=== PATIENT | male | born 1990 | race Caucasian/White ===

== ENCOUNTER 2020-03-19 10:21 | Outpatient (REF) | payer MEDICAID, SELFPAY | END 2020-03-19 10:22 | disposition home or self-care (01) | LOC: HO.LAB 10:21 | PROVIDERS: Visit Provider Internal Medicine | DX: Z20.822 Contact with and (suspected) exposure to COVID-19 (principal) | CPT/HCPCS: 36415; C9803; U0003 ==

== ENCOUNTER → 2022-02-10 08:33 | Outpatient (BNVA) | payer OTHER, SELFPAY | PROVIDERS: Visit Provider Internal Medicine | DX: R05.8 Other specified cough (principal); R53.83 Other fatigue; R42 Dizziness and giddiness | CPT/HCPCS: 71046; 99203 ==

== ENCOUNTER 2024-12-17 08:55 | Emergency (ER) | payer MEDICAID, SELFPAY ==
--- NOTE | ~2024-12-17 | XR_ITS ---
CLINICAL HISTORY: numbness down LUE 3 view left shoulder Comparison: None provided Findings: Bones intact. No dislocations. No significant loss of joint space or osteophytes. No erosions. No radiopaque foreign body. IMPRESSION: 1. No acute findings This document has been electronically signed by: Adia Bernal MD on 12/17/2024 13:51:54
--- NOTE | ~2024-12-17 | XR_ITS ---
CLINICAL HISTORY: chest pressure 2 view chest x-ray Comparison: CR/SR - XR CHEST 2 VIEWS - 02/10/22 09:59 EST Findings: The lungs are clear. Normal size heart. No acute fracture. IMPRESSION: 1. No acute findings. This document has been electronically signed by: Adia Bernal MD on 12/17/2024 13:57:52
[2024-12-17 08:57] VITALS: BP 122/71; PULSE 75; RESP 18; TEMP 36.4; O2SAT 97; BMI 30.8
--- NOTE | 2024-12-17 09:01 | ECG_ITS ---
Test Reason : CP Blood Pressure : */* mmHG Vent. Rate : 70 BPM Atrial Rate : 70 BPM P-R Int : 154 ms QRS Dur : 90 ms QT Int : 376 ms P-R-T Axes : 40 48 27 degrees QTcB Int : 406 ms Normal sinus rhythm Normal ECG When compared with ECG of 29-Jul-2009 15:28, No significant change was found Referred By: Generic ED Physician Electronically Signed By: Carlos Awan
[2024-12-17 09:18] LABS: MANUAL DIFF FLAG NO
[2024-12-17 09:29] LABS: Hematocrit 45.5 % (42.0-52.0); Hemoglobin 15.9 g/dl (14.0-18.0); Imm Gran Abs Auto 0.02 X10*3/uL (0.00-0.03); Imm Gran Pct Auto 0.3 % (0.0-0.4); Lymphocytes Absolute Auto 1.4 X10*3/uL (1.2-4.9); Mean Corpuscular HGB Conc 34.9 g/dl (31.0-36.0); Mean Corpuscular Hemoglobin 30.8 pg (27.0-33.0); Mean Corpuscular Volume 88.0 fL (80.0-98.0); NRBC Abs Auto 0.000 X10*3/uL (0.0-0.012); NRBC Pct Auto 0.0 /100WBC (0.0-0.2); Platelet Count 212 X10*3/uL (160-400); Red Blood Count 5.17 X10*6/uL (4.60-5.80); White Blood Count 6.4 X10*3/uL (4.8-10.8)
[2024-12-17 09:39] LABS: Anion Gap 11 (12-20); Blood Urea Nitrogen 16 mg/dL (9-16); Calcium 8.8 mg/dL (8.4-10.2); Carbon Dioxide 24 mmol/L (22-29); Chloride 108 mmol/L (96-108); Creatinine Clr Calc Pharmacy 115.7; Estimated Glomerular Filt Rate > 60; Potassium 4.1 mmol/L (3.3-5.1); Sodium 139 mmol/L (135-145)
[2024-12-17 09:57] LABS: Troponin-I High Sensitivity < 2.7 ng/L (<3.5-35.0)
--- NOTE | 2024-12-17 10:47 | ED_ITS ---
HPI - Chest Pain General Chief Complaint: Chest Pain Stated Complaint: L arm pain/numbness Time Seen by Provider: 12/17/24 10:39 Source: patient Mode of arrival: ambulatory Limitations: no limitations History of Present Illness ED Provider: BOLA Reynolds HPI narrative: 34 year old male with pmhx significant for asthma presents to the ED today for evaluation of atraumatic left shoulder pain x2 months. Pain does not radiate. Localized to outer left shoulder. Admits to intermittent tingling/numbness down LUE - primarily on waking in the morning. Is unsure of his sleeping position. Has not trialed any OTC pain meds. He has not seen a provider for this yet. Denies blunt injury/trauma/falls. Also endorsing intermittent chest tightness x2 months. Denies shortness of breath, cough, pain, hemoptysis, lower extremity pain/swelling. No recent travel or long car rides. Related Data Previous Rx's ?Medication ?Instructions ?Recorded lidocaine 5 % topical patch See Rx Instructions topica l 12/17/24 .COMPLEX #15 ea prednisone 20 mg tablet 40 mg (2 x 20 mg) PO DAILY 5 days 12/17/24 #10 tabs Allergies Allergy/AdvReac Type Severity Reaction Status Date / Time No Known Allergies Allergy Verified 12/17/24 09:00 Review of Systems 2 Review of Systems: Yes all other systems are reviewed and are negative PMFSH Past Medical History Attestation statement: The following information was validated with the patient. Source: old records reviewed and nursing notes reviewed Physical Exam 2 Vital Signs: Vital Signs: Last Vital Signs Temp 0 F L 12/17/24 14:03 Pulse 0 L 12/17/24 14:03 Resp 0 L 12/17/24 14:03 BP 0/0 L 12/17/24 14:03 Pulse Ox 0 L 12/17/24 14:03 O2 Del Method Room Air 12/17/24 12:33 BMI result Body Mass Index 30.8 hypertensive, vitals are otherwise wnl General: Well appearing, in no acute distress. Skin: Warm, dry, intact. No rashes or lesions. Head: Normocephalic, atraumatic. EENT: Hearing is intact b/l. Conjunctiva clear. Sclera is anicteric. PERRLA. EOM intact. Moist mucous membranes.? Neck: Supple without LAD. FROM. Trachea midline.? Cardiac: Chest wall symmetric. RRR Lungs: Normal respiratory effort without accessory muscle use. CTA bilaterally Abdomen: Soft, non-tender, non-distended. No rebound tenderness or guarding. Positive BS x4. Back: No midline spinous or paraspinal tenderness. No step off deformity. Ext: Upper and lower extremities atraumatic, without tenderness, deformity, swelling or erythema. Full ROM throughout Neuro: AOx3. Normal speech. Strength 5/5 intact throughout. No saddle anesthesia. Sensation intact to light touch. NV intact distally. Ambulating with steady gait. Course Course Course Narrative: CBC without leukocytosis or left shift. No anemia. H&H stable. Chemistry without acute electrolyte abnormality requiring intervention. No YESY. Troponin undetectable. EKG showing normal sinus rhythm without acute ischemic changes or ST elevations. > patient treated with Toradol with improvement in discomfort. also received albuterol treatment > there is a delay in x-ray read. There have been multiple attempts at reaching Radiology. Patient is agitated at the long wait time for x-ray rates. Would like to leave the ED AMA without the reads from his chest x-ray or shoulder x- ray. Patient is choosing to leave AMA and with informed refusal. Patient provided with a full explanation of the rationale. The risks of leaving were explained to the patient and include, but not are not limited to, worsening of known or currently on known conditions, permanent disability, and from undiagnosed or untreated conditions. The patient has the capacity to make this decision and has the capacity to understand the clinical situation and my explanation of the risks of refusing. The patient voluntarily accepts these risks. Patient was given the opportunity to ask questions and reconsider. Medications Administered Discontinued Medications Generic Name Dose Route Start Last Admin Trade Name Freq PRN Reason Stop Dose Admin Ketorolac Tromethamine 30 mg 12/17/24 11:39 12/17/24 11:57 Ketorolac Tromethamine 30 Mg/Ml Vial IM 12/17/24 11:40 30 mg ONCE ONE Administration Medical Decision Making Medical Decision Making MDM Narrative: 34 year old male with pmhx significant for asthma presents to the ED today for evaluation of atraumatic left shoulder pain and chest tightness x2 months. Vital signs stable. Not hypoxic or tachycardic. Patient's physical exam is benign. Differential diagnosis includes MSK sprain/strain, tendonitis, bursitis, arthritis, ACS, arrhythmia, asthma exacerbation, pleurisy. Unlikely PE. Plan for labs, EKG, chest x-ray, shoulder x-ray. Toradol ordered for pain control. Given chest tightness, will trial bronch treatment. Differential Diagnosis Differential Diagnoses: The differential diagnosis associated with the presentation includes as above. Admission/Observation Not indicated Lab Data MDM Lab Attestation statement: I reviewed the patient's lab results. As above 12/17/24 09:12 12/17/24 09:12 Labs: Lab Results 12/17/24 Range/Units 09:12 WBC 6.4 (4.8-10.8) X10*3/uL RBC 5.17 (4.60-5.80) X10*6/uL Hgb 15.9 (14.0-18.0) g/dl Hct 45.5 (42.0-52.0) % MCV 88.0 (80.0-98.0) fL MCH 30.8 (27.0-33.0) pg MCHC 34.9 (31.0-36.0) g/dl RDW 12.2 (11.0-16.0) % Plt Count 212 (160-400) X10*3/uL MPV 10.6 (9.4-12.4) fL Immature Gran % (Auto) 0.3 (0.0-0.4) % Neut % (Auto) 68.0 (45-73) % Lymph % (Auto) 22.3 (20-40) % Brantley % (Auto) 7.1 (2-11) % Eos % (Auto) 1.7 (0-4) % Baso % (Auto) 0.6 (0-2) % Lymph # (Auto) 1.4 (1.2-4.9) X10*3/uL Brantley # (Auto) 0.5 (0.1-1.2) X10*3/uL Eos # (Auto) 0.1 (0.0-0.4) X10*3/uL Baso # (Auto) 0.0 (0.0-0.2) X10*3/uL Abs Immat Gran (auto) 0.02 (0.00-0.03) X10*3/uL Absolute Neuts (auto) 4.3 (2.0-8.3) x10*3/uL Absolute Nucleated RBC 0.000 (0.0-0.012) X10*3/uL Nucleated RBC % (auto) 0.0 (0.0-0.2) /100WBC Sodium 139 (135-145) mmol/L Potassium 4.1 (3.3-5.1) mmol/L Chloride 108 (96-108) mmol/L Carbon Dioxide 24 (22-29) mmol/L Anion Gap 11 L (12-20) BUN 16 (9-16) mg/dL Creatinine 0.94 (0.5-1.4) mg/dL Estim Creat Clear Calc 115.7 Estimated GFR > 60 Random Glucose 103 (60-115) mg/dL Calcium 8.8 (8.4-10.2) mg/dL Troponin I High Sens < 2.7 (<3.5-35.0) ng/L Independent Interpretation I performed an independent interpretation of an: Plain X-Ray Interpretation: Chest x-ray without infiltrate or consolidation X-ray left shoulder without dislocation EKG showing normal sinus rhythm, rate of 70 beats per minute, QT 376, QTC 406, no acute ischemic changes or ST elevations Radiology Impression Discussion of test interpretation with radiology: I have reviewed the radiologist's reading. Radiologist Impression: Procedure(s): XR chest 2V Accession Number(s): [id number] cc: [facility] Reason for Exam: chest pressure CLINICAL HISTORY: chest pressure 2 view chest x-ray Comparison: CR/SR - XR CHEST 2 VIEWS - 02/10/22 09:59 EST Findings: The lungs are clear. Normal size heart. No acute fracture. IMPRESSION: 1. No acute findings. This document has been electronically signed by: Adia Bernal MD on 12/17/2024 13:57:52 Procedure(s): XR shoulder LT min 2V Accession Number(s): [id number] cc: [facility] Reason for Exam: numbness down LUE CLINICAL HISTORY: numbness down LUE 3 view left shoulder Comparison: None provided Findings: Bones intact. No dislocations. No significant loss of joint space or osteophytes. No erosions. No radiopaque foreign body. IMPRESSION: 1. No acute findings This document has been electronically signed by: Adia Bernal MD on 12/17/2024 13:51:54 Prescription Management I considered prescription management with: Pain Medication Social Determinants Patient?s care significantly limited by Social Determinants of Health including: Other Social Determinant of Health Critical Care Time Critical Care Time Critical Care Time: No Discharge Plan Discharge Clinical Impression: Cervical radiculopathy Patient Disposition: Left Against Medical Advice Instructions: Cervical Radiculopathy (ED) Additional Instructions: You were evaluated in the ED today for left arm tingling/pain along with chest pressure. Your blood work is reassuring. Your EKG is normal. Your cardiac enzyme is normal. You were given a breathing treatment in ED today along with an anti inflammatory pain medication. You are choosing to leave without the results of your xrays (shoulder and chest) which is against medical advise. I am sending prednisone to your pharmacy. Take this as prescribed voer the next 5 days. You may return at any point. Follow up with outpatient providers. In the case of an emergency call 911. Prescriptions: New prednisone 20 mg tablet 40 mg PO DAILY 5 Days Qty: 10 0RF lidocaine 5 % adhesive patch,medicated See Rx Instructions .ROUTE .COMPLEX Qty: 15 0RF Rx Instructions: leave on most painful area for up to 12 hrs Referrals: [facility] [Primary Care Provider, Medical] Stand Alone Forms: Against Medical Advice Interventions: ED Discharge Assessment Last Done: 12/17/24 14:03 Discharge Date/Time: 12/17/24 14:04 Print Language: Ukrainian
[2024-12-17 12:33] VITALS: BP 140/60; PULSE 59; RESP 16; O2SAT 97
[2024-12-17 14:03] VITALS: BP 0/0; PULSE 0; RESP 0; TEMP -17.7; TEMP 0; O2SAT 0
== END 2024-12-17 14:04 | disposition left against medical advice (07) ==
PROVIDERS: Emergency Provider Emergency Medicine
DX: M54.12 Radiculopathy, cervical region (principal); R07.9 Chest pain, unspecified; M79.602 Pain in left arm; R20.0 Anesthesia of skin
CPT/HCPCS: 36415; 71046; 73030; 80048; 84484; 85025; 93005; 96372; 99284; 99285; J1885

== ENCOUNTER → 2024-12-17 09:01 | Outpatient (BNV) | payer MEDICAID, SELFPAY | PROVIDERS: Emergency Provider Emergency Medicine; Visit Provider Internal Medicine Cardiovascular Disease | DX: R07.9 Chest pain, unspecified (principal) | CPT/HCPCS: 93010 ==

== ENCOUNTER → 2024-12-17 10:51 | Outpatient (BNV) | payer MEDICAID, SELFPAY | PROVIDERS: Emergency Provider Emergency Medicine; Visit Provider Radiology Diagnostic Radiology | DX: R07.9 Chest pain, unspecified (principal); M25.512 Pain in left shoulder | CPT/HCPCS: 71046; 73030 ==